=== PATIENT | male | born 1960 | race Caucasian/White ===

== ENCOUNTER 2019-04-05 00:22 | Emergency (ER) | payer MEDICAID ==
[~2019-04-05] VITALS: Ht 180.3 cm; Wt 89.4 kg
[2019-04-05 00:22] VITALS: BP_SYST 158
--- NOTE | 2019-04-05 00:22 | NUR ---
Placed in room 3 . Placed on cardiac monitor technician, blood pressure machine and pulse oximeter. To gown for exam. Side rails up.
--- NOTE | 2019-04-05 00:30 | NUR ---
Pt was BIB BLS from home c/o minor chest tightness, right sided neck pain that radiates down back. Pt states he has not been taking his Xanax for about 2 months because he ran out of medications. Pt also states he has not taken his blood pressure medication for about four days. O2 saturation on room air 100%. No other injuries/complaints per patient or noted.
--- NOTE | 2019-04-05 00:50 | NUR ---
ER Dr. Green at bedside examining patient.
[2019-04-05] MEDS ORDERED: NACL 0.9% 1,000 ML IV ONE (00:56)
[2019-04-05] MEDS ORDERED: LORazepam 2 MG/ML VIAL (FOR ER USE) IVP ONE (01:00)
[2019-04-05] MEDS ORDERED: ASPIRIN 81 MG TAB.CHEW PO ONE (01:00)
[2019-04-05] MEDS ORDERED: KETOROLAC TROMETHAMINE 30 MG VIAL IVP ONE (01:00)
[2019-04-05 01:42] LABS: BASOPHILS # (AUTO) 0.1 K/uL (0.0-0.2); BASOPHILS % (AUTO) 0.9 % (0.0-2.0); EOSINOPHILS # (AUTO) 0.2 K/uL (0.0-0.4); EOSINOPHILS % (AUTO) 2.7 % (0.0-4.0); HEMATOCRIT 36.4 % (36-54); HEMOGLOBIN 12.8 g/dL (14.0-18.0); LYMPHOCYTES # (AUTO) 1.5 K/uL (1.0-5.5); LYMPHOCYTES % (AUTO) 16.9 % (20.5-51.5); MEAN CORPUSCULAR HEMOGLOBIN 33 pg (27-31); MEAN CORPUSCULAR HGB CONC 35 % (32-36); MEAN CORPUSCULAR VOLUME 93 fL (79.0-98.0); MONOCYTES # (AUTO) 1.1 K/uL (0.0-1.0); MONOCYTES % (AUTO) 11.9 % (1.7-9.3); NEUTROPHILS # (AUTO) 6.1 K/uL (1.8-7.7); NEUTROPHILS % (AUTO) 67.6 % (40.0-70.0); PLATELET COUNT (AUTO) 293 K/uL (130-430); RED BLOOD CELL COUNT(AUTO) 3.92 MIL/uL (4.2-6.2); RED CELL DISTRIBUTION WIDTH 12.5 % (9.0-15.0)
[2019-04-05 03:09] LABS: ALBUMIN 3.3 g/dL (3.4-4.8); CALCIUM 8.1 mg/dL (8.4-11.0); CREATININE 0.88 mg/dL (0.55-1.30); POTASSIUM 4.2 mmol/L (3.5-5.1); TOTAL BILIRUBIN 0.4 mg/dL (0.0-1.0); URIC ACID 4.4 mg/dL (2.4-7.0)
--- NOTE | 2019-04-05 03:33 | NUR ---
Note undone in EDM - 04/05/19 at 0336 by [email or web address] Patient given written and verbal discharge instructions and verbalizes understanding. ER discussed with patient the results and treatment provided. Patient in stable condition. ID arm band removed. Rx of Bactrim and Ibuprofen given. Patient educated on pain management and to follow up with PMD. Pain Scale 0. Opportunity for questions provided and answered. Medication side effect fact sheet provided.
[2019-04-05 03:39] VITALS: BP_SYST 139
--- NOTE | 2019-04-05 03:39 | NUR ---
Patient given written and verbal discharge instructions and verbalizes understanding. ER MD Dr. Green discussed with patient the results and treatment provided. Patient in stable condition. ID arm band removed. IV catheter removed intact and dressing applied, no active bleeding. Patient educated on pain management and to follow up with PMD. Pain Scale 0/10. Opportunity for questions provided and answered. Medication side effect fact sheet provided.
== END 2019-04-05 03:39 | disposition home or self-care (01) ==
LOC: SED 00:22
DX: F41.0 Panic disorder [episodic paroxysmal anxiety] (principal); I10 Essential (primary) hypertension; F32.9 Major depressive disorder, single episode, unspecified; F41.9 Anxiety disorder, unspecified
CPT/HCPCS: 36415; 71045; 73660; 80053; 84484; 84550; 85025; 93005; 96374; 96375; 99284; J1885; J2060; J7030